=== PATIENT | male | born 1960 | race Caucasian/White ===

== ENCOUNTER 2022-08-26 05:54 | Observation (INO) ==
[2022-08-26] MEDS ORDERED: Buffered Lidocaine 1% SYRIN 1 ml INTRADERM ONE (06:00)
[2022-08-26] MEDS ORDERED: Lactated Ringers 1000 ml BAG 1,000 ML IV SCH (06:00)
[2022-08-26] MEDS ORDERED: ceFAZolin 2 GM in NS PREMIX 0 GM/0 ML BAG IVPB ONE (06:03)
[2022-08-26] MEDS ORDERED: ceFAZolin *3* GM in NS PREMIX 3 GM/100 ML BAG IV ONE (07:16)
[2022-08-26] MEDS ORDERED: ROPIVACAINE 5 MG/ML 30 ML BTL (0.5%) ONE (07:25)
[2022-08-26] MEDS ORDERED: Midazolam 5 mg/5 ml VIAL 1 mg/ml 5 ml VIAL (5 mg) ONE (07:25)
[2022-08-26] MEDS ORDERED: fentaNYL 100 mcg/2 ml 50 MCG/ML VIAL ONE (07:25)
[2022-08-26] MEDS ORDERED: Famotidine IV 10 MG/ML 2 ml VIAL (20 mg) ONE (07:48)
[2022-08-26] MEDS ORDERED: Famotidine IV 10 MG/ML 2 ml VIAL (20 mg) IV SLOW PU ONE (08:11)
[2022-08-26] MEDS ORDERED: Ropivacaine 5 MG/ML 20 ML VIAL 0.5% (100 MG) ONE (08:51)
[2022-08-26] MEDS ORDERED: Midazolam 2 mg/2 ml VIAL 1 mg/ml 2 ml VIAL (2 mg) ONE (09:23)
[2022-08-26] MEDS ORDERED: Ketamine HCL 50 mg/ml 10 ml VIAL (500 MG) ONE (09:31)
[2022-08-26] MEDS ORDERED: Glycopyrrolate IV 0.2 MG/ML 1 ML VIAL ONE (09:31)
[2022-08-26] MEDS ORDERED: Dexmedetomidine 200 mcg/2 ml 2 ml VIAL (200 mcg) ONE (09:37)
[2022-08-26] MEDS ORDERED: Dexamethasone IV 4 MG/ML VIAL 1 ml VIAL ONE (09:37)
[2022-08-26] MEDS ORDERED: Sodium Chloride 0.9% 20 ML ONE (09:39)
[2022-08-26] MEDS ORDERED: Propofol 10 MG/ML 20 ML BTL ONE ×2 (11:01→11:50)
[2022-08-26] MEDS ORDERED: HYDROmorphone 1 MG/1 ML SYRINGE IV PRN (11:47)
[2022-08-26] MEDS ORDERED: fentaNYL 100 mcg/2 ml 50 MCG/ML VIAL IV PRN (11:47)
[2022-08-26] MEDS ORDERED: Naloxone 0.4 mg VIAL 0.4 mg/ml 1 ml VIAL IV PRN (11:47)
[2022-08-26] MEDS ORDERED: Ondansetron 4 mg VIAL 2 MG/ML 2 ml VIAL IV PRN ×2 (11:47→12:13)
[2022-08-26] MEDS ORDERED: Morphine 2 MG/ML SYRINGE IV PRN (12:13)
[2022-08-26] MEDS ORDERED: Ondansetron ODT 4 mg TAB 4 MG TAB PO PRN (12:13)
[2022-08-26] MEDS ORDERED: Magnesium Hydroxide LIQ 30 ML UDC PO PRN (12:13)
[2022-08-26] MEDS ORDERED: Lactulose 30 ml UDC PO PRN (12:13)
[2022-08-26] MEDS: Lactated Ringers 1000 ml BAG 1,000 ML IV SCH (15:22)
[2022-08-26] MEDS ORDERED: ceFAZolin 1 GM ADVAN 1 GM in NS 0.9% 50 ML 50 ML IVPB SCH (18:00)
[2022-08-26] MEDS: ceFAZolin 1 GM ADVAN 1 GM in NS 0.9% 50 ML 50 ML IVPB SCH (20:38)
[2022-08-26] MEDS ORDERED: Magnesium Hydroxide LIQ 30 ML UDC PO SCH (21:00)
[2022-08-27] MEDS: Lactated Ringers 1000 ml BAG 1,000 ML IV SCH (01:41)
[2022-08-27] MEDS: ceFAZolin 1 GM ADVAN 1 GM in NS 0.9% 50 ML 50 ML IVPB SCH ×2 (04:37→11:23)
[2022-08-27 06:13] LABS: Hematocrit 35 % (42-52); Hemoglobin 11.9 g/dL (14.0-18.0); Mean Platelet Volume 7.7 fL (7.4-10.4); Platelet Count 165 10^3/uL (150-450)
[2022-08-27 06:42] LABS: Calcium 8.3 mg/dL (8.6-10.3); Creatinine, Serum 0.9 mg/dL (0.67-1.17); Potassium 4.1 mmol/L (3.5-5.0); eGFR CKD-EPI 97.8 (>60)
[2022-08-27] MEDS ORDERED: Vitamin THERAPEUTIC TAB PO SCH (09:00)
[2022-08-27 12:40] VITALS: BP 121/76
== END 2022-08-27 13:15 | disposition home or self-care (01) ==
LOC: SSU 05:54 → OR 05:54
PROVIDERS: ADMIT Orthopaedic Surgery Adult Reconstructive Orthopaedic Surgery; ATTEND Orthopaedic Surgery Adult Reconstructive Orthopaedic Surgery

== ENCOUNTER 2023-09-01 06:19 | Observation (INO) ==
[~2023-09-01 06:19] MED LIST: HYDROmorphone 1 MG/1 ML SYRINGE IV PRN; Naloxone 0.4 mg VIAL 0.4 mg/ml 1 ml VIAL IV PRN; Ondansetron 4 mg VIAL 2 MG/ML 2 ml VIAL IV PRN; fentaNYL 100 mcg/2 ml 50 MCG/ML VIAL IV PRN
[2023-09-01] MEDS ORDERED: Propofol 10 MG/ML 20 ML BTL ONE (08:00)
[2023-09-01] MEDS ORDERED: Phenylephrine IV 10 MG/ML 1 ml VIAL ONE (08:00)
[2023-09-01] MEDS ORDERED: Ondansetron 4 mg VIAL 2 MG/ML 2 ml VIAL ONE (08:00)
[2023-09-01] MEDS ORDERED: Phenylephrine 40 mcg/mL 10mL (400mcg) SYRINGE ONE (08:00)
[2023-09-01] MEDS ORDERED: Midazolam 2 mg/2 ml VIAL 1 mg/ml 2 ml VIAL (2 mg) ONE ×2 (08:00→08:13)
[2023-09-01] MEDS ORDERED: Glycopyrrolate IV 0.2 MG/ML 1 ML VIAL ONE ×2 (08:00→11:20)
[2023-09-01] MEDS ORDERED: fentaNYL 100 mcg/2 ml 50 MCG/ML VIAL ONE (08:07)
[2023-09-01] MEDS ORDERED: Dexamethasone IV 4 MG/ML VIAL 1 ml VIAL ONE (08:13)
[2023-09-01] MEDS ORDERED: ROPIVACAINE 5 MG/ML 30 ML BTL (0.5%) ONE ×2 (08:13→08:14)
[2023-09-01] MEDS ORDERED: ceFAZolin *3* GM in NS PREMIX 3 GM/100 ML BAG IV ONE (08:19)
[2023-09-01] MEDS ORDERED: Tranexamic Acid 1 GM/100ML BAG 2,000 MG/200 ML BAG IV ONE (08:19)
[2023-09-01] MEDS ORDERED: KETAMINE HCL 10 MG/ML 20 ml VIAL (200 MG) ONE (08:42)
[2023-09-01] MEDS ORDERED: Buffered Lidocaine 1% SYRIN 1 ml ONE (08:54)
[2023-09-01 09:03] LABS: Rapid COVID-19 Molecular Undetected (Undetected)
[2023-09-01] MEDS ORDERED: Buffered Lidocaine 1% SYRIN 1 ml INTRADERM ONE (10:50)
[2023-09-01] MEDS ORDERED: Lactated Ringers 1000 ml BAG 1,000 ML IV SCH (11:00)
[2023-09-01] MEDS ORDERED: Morphine 2 MG/ML SYRINGE IV PRN (11:55)
[2023-09-01] MEDS ORDERED: Ondansetron ODT 4 mg TAB 4 MG TAB PO PRN (11:55)
[2023-09-01] MEDS ORDERED: Magnesium Hydroxide LIQ 30 ML UDC PO PRN (11:55)
[2023-09-01] MEDS ORDERED: Ondansetron 4 mg VIAL 2 MG/ML 2 ml VIAL IV PRN (11:55)
[2023-09-01] MEDS ORDERED: Lactulose 30 ml UDC PO PRN (11:55)
[2023-09-01] MEDS: Lactated Ringers 1000 ml BAG 1,000 ML IV SCH (16:18)
[2023-09-01 16:55] VITALS: BP 132/81
[2023-09-01] MEDS: ceFAZolin 1 GM ADVAN 1 GM in NS 0.9% 50 ML 50 ML IVPB SCH (17:45)
[2023-09-01] MEDS ORDERED: Magnesium Hydroxide LIQ 30 ML UDC PO SCH (21:00)
[2023-09-02] MEDS ORDERED: Vitamin THERAPEUTIC TAB PO SCH (09:00)
== END 2023-09-01 20:00 | disposition home or self-care (01) ==
LOC: OR 06:19 → SSU 06:19
PROVIDERS: ADMIT Nurse Practitioner Family; ATTEND Orthopaedic Surgery Adult Reconstructive Orthopaedic Surgery